=== PATIENT | female | born 1985 | race Caucasian/White ===

== ENCOUNTER → 2022-04-02 | Day surgery (SDC) | payer OTHER ==
[~2022-04-02] VITALS: Ht 175.3 cm; Wt 81.6 kg
[~2022-04-02] MED LIST: BUSPAR5 MG PO; DESVENLAFAXINE100 M3 PO; METFORMIN HCL500 M1 PO; METOPROLOL SUCC25 MG PO
[2022-04-02 07:54] LABS: HCT 39.5 % (37.0-47.0); HGB 12.9 g/dl (12.5-16.0); MCH 29.6 pg (25.0-31.0); MCHC 32.7 g/dL (32.0-36.0); MCV 90.6 fL (78.0-100.0); MPV 9.2 fL (6.0-9.5); RBC 4.36 M/uL (4.20-5.40); RDW 12.2 % (11.5-14.0); WBC 7.9 K/uL (4.0-10.5)
== END | disposition home or self-care (01) ==
LOC: FAS 07:10
PROVIDERS: Specialist
DX: N92.1 Excessive and frequent menstruation with irregular cycle (principal); Z98.890 Other specified postprocedural states
CPT/HCPCS: 36415; 84703; J0690; J1100; J1885; J2250; J2405; J2704; J3010; J7120